=== PATIENT | male | born 1980 | race Two or more races ===

== ENCOUNTER 2020-01-31 19:50 | Inpatient (IN) | payer MEDICAID ==
[~2020-01-31] VITALS: Ht 162.6 cm; Wt 77.1 kg
[2020-01-31] MEDS ORDERED: ONDANSETRON HCL 4MG/2ML INJ IV STA (21:28)
[2020-01-31] MEDS ORDERED: KETOROLAC 30MG/ML VIAL IV STA (21:28)
[2020-01-31] MEDS ORDERED: SODIUM CHLORIDE 0.9% 1000ML BAG (SEPSIS BOLUS) IV ONE (21:30)
[2020-01-31 23:03] LABS: BASOPHILS % 0.2 % (0.0-2.0); HEMATOCRIT. 44.9 % (42.0-52.0); HEMOGLOBIN. 15.6 g/dL (14.0-18.0); LYMPHOCYTES % 17.1 % (20.0-50.0); MEAN CORPUSCULAR HEMOGLOBIN 31.6 pg (28.0-32.0); MEAN CORPUSCULAR VOLUME 90.6 fL (80.0-94.0); MEAN PLATELET VOLUME 8.7 fl (7.4-10.4); MONOCYTES % 12.8 % (2.0-8.0); NEUTROPHILS % 69.9 % (40.0-76.0); PLATELET 225 x1000/uL (130-400); RED BLOOD CELL COUNT 4.95 mill/uL (4.7-6.1)
[2020-01-31 23:09] LABS: CHLORIDE 101 mEq/L (98-107)
[2020-01-31 23:11] LABS: INR 1.1; PROTHROMBIN TIME 11.4 sec (9.6-11.0)
[2020-02-01] MEDS ORDERED: ASPIRIN 325MG TABLET PO ONE (00:15)
[2020-02-01] MEDS ORDERED: TRAZODONE HCL 50MG TABLET PO PRN (00:30)
[2020-02-01] MEDS ORDERED: SODIUM CHLORIDE 0.9% 500 ML IV ONE (00:30)
[2020-02-01] MEDS ORDERED: KETOROLAC 30MG/ML VIAL IV PRN (00:30)
[2020-02-01] MEDS ORDERED: CEFTRIAXONE 1 G PREMIX 50 ML IV ONE (00:30)
[2020-02-01] MEDS ORDERED: ONDANSETRON HCL 4MG/2ML INJ IV PRN (00:30)
[2020-02-01 05:12] LABS: *AMPHETAMINES SCREEN URINE NEGATIVE (NEGATIVE); *BARBITURATES SCREEN URINE NEGATIVE (NEGATIVE)
[2020-02-01 05:13] LABS: *BENZODIAZEPINES SCREEN URINE NEGATIVE (NEGATIVE); *COCAINE SCREEN URINE NEGATIVE (NEGATIVE); METHADONE URINE SCREEN NEGATIVE (NEGATIVE); OPIATES URINE SCREEN NEGATIVE (NEGATIVE); PHENCYCLIDINE URINE SCREEN NEGATIVE (NEGATIVE)
[2020-02-01 05:14] LABS: CANNABINOID URINE SCREEN NEGATIVE (NEGATIVE)
[2020-02-01 06:00] VITALS: BP 137/69
[2020-02-01] MEDS: ACETAMINOPHEN 325MG TABLET PO PRN ×2 (06:22→23:07)
[2020-02-01 08:00] VITALS: BP 104/1
[2020-02-01 08:06] VITALS: BP 104/61
[2020-02-01] MEDS ORDERED: HEPARIN 5000 UNITS/ML VIAL SUBCUT SCH (09:00)
[2020-02-01] MEDS: ENOXAPARIN 80MG/0.8ML SYR SUBCUT SCH ×2 (10:13→23:06)
[2020-02-01] MEDS: DEXAMETHASONE 4MG TABLET PO SCH (10:24)
[2020-02-01] MEDS: AZITHROMYCIN 500 MG TABLET PO SCH (10:24)
[2020-02-01 12:00] VITALS: BP 112/68
[2020-02-01 13:22] LABS: CLARITY URINE CLEAR (CLEAR); COLOR URINE YELLOW (YELLOW); KETONES URINE 1+ (NEGATIVE); LEUKOCYTE ESTERASE URINE NEGATIVE (NEGATIVE); NITRITE URINE NEGATIVE (NEGATIVE); OCCULT BLOOD URINE NEGATIVE (NEGATIVE); PH URINE 6.5 (4.5-8.0); PROTEIN URINE NEGATIVE (NEGATIVE); SPECIFIC GRAVITY URINE 1.007 (1.005-1.030)
[2020-02-01 16:00] VITALS: BP 90/71
[2020-02-01 20:00] VITALS: BP 110/70
[2020-02-01 21:06] LABS: LDL CHOLESTEROL 55 mg/dL (5-100)
[2020-02-01 21:08] LABS: HDL CHOLESTEROL 38 mg/dL (40-59)
[2020-02-01] MEDS: CEFTRIAXONE 1 G PREMIX 50 ML IV SCH (23:06)
[2020-02-02] VITALS: BP 101/63
[2020-02-02 04:00] VITALS: BP 104/64
[2020-02-02] MEDS: ALBUTEROL 6.7GM HFA INHALER ORI SCH ×3 (06:00→17:01)
[2020-02-02 06:51] LABS: CHLORIDE 106 mEq/L (98-107)
[2020-02-02 06:53] LABS: BASOPHILS % 0.1 % (0.0-2.0); HEMOGLOBIN. 14.4 g/dL (14.0-18.0); LYMPHOCYTES % 12.7 % (20.0-50.0); MEAN CORPUSCULAR HEMOGLOBIN 31.5 pg (28.0-32.0); MEAN CORPUSCULAR VOLUME 89.3 fL (80.0-94.0); MEAN PLATELET VOLUME 8.1 fl (7.4-10.4); MONOCYTES % 13.2 % (2.0-8.0); PLATELET 258 x1000/uL (130-400); RED BLOOD CELL COUNT 4.59 mill/uL (4.7-6.1); RED CELL DISTRIBUTION WIDTH 13.1 % (11.6-14.6)
[2020-02-02 07:03] LABS: LDL CHOLESTEROL 64 mg/dL (5-100)
[2020-02-02 07:04] LABS: HDL CHOLESTEROL 40 mg/dL (40-59)
[2020-02-02 07:05] LABS: T4 FREE 1.28 ng/dL (0.76-1.46)
[2020-02-02 08:30] VITALS: BP 108/64
[2020-02-02] MEDS: ENOXAPARIN 80MG/0.8ML SYR SUBCUT SCH ×2 (09:05→21:36)
[2020-02-02] MEDS: AZITHROMYCIN 500 MG TABLET PO SCH (09:05)
[2020-02-02] MEDS: DEXAMETHASONE 4MG TABLET PO SCH (09:05)
[2020-02-02 12:00] VITALS: BP 103/66
[2020-02-02 16:00] VITALS: BP 112/56
[2020-02-02 20:00] VITALS: BP 113/58
[2020-02-02] MEDS: CEFTRIAXONE 1 G PREMIX 50 ML IV SCH (21:36)
[2020-02-03] VITALS: BP 117/66
[2020-02-03] MEDS: ALBUTEROL 6.7GM HFA INHALER ORI SCH ×3 (00:56→11:30)
[2020-02-03 04:00] VITALS: BP 112/69
[2020-02-03 06:36] LABS: BASOPHILS % 0.1 % (0.0-2.0); HEMATOCRIT. 41.5 % (42.0-52.0); HEMOGLOBIN. 14.7 g/dL (14.0-18.0); LYMPHOCYTES % 11.4 % (20.0-50.0); MEAN CORPUSCULAR HEMOGLOBIN 31.7 pg (28.0-32.0); MEAN CORPUSCULAR VOLUME 89.8 fL (80.0-94.0); MEAN PLATELET VOLUME 8.2 fl (7.4-10.4); MONOCYTES % 12.8 % (2.0-8.0); NEUTROPHILS % 75.7 % (40.0-76.0); PLATELET 339 x1000/uL (130-400); RED BLOOD CELL COUNT 4.63 mill/uL (4.7-6.1); RED CELL DISTRIBUTION WIDTH 13.2 % (11.6-14.6)
[2020-02-03 06:45] LABS: CHLORIDE 107 mEq/L (98-107)
[2020-02-03 08:00] VITALS: BP 110/67
[2020-02-03] MEDS: DEXAMETHASONE 4MG TABLET PO SCH (08:32)
[2020-02-03] MEDS: AZITHROMYCIN 500 MG TABLET PO SCH (08:32)
[2020-02-03] MEDS: ENOXAPARIN 80MG/0.8ML SYR SUBCUT SCH (08:32)
[2020-02-03] MEDS ORDERED: DEX4 PO (10:54)
[2020-02-03] MEDS ORDERED: AZIT500T8 PO (10:54)
[2020-02-03] MEDS ORDERED: TOPUD PO (10:54)
[2020-02-03 11:37] VITALS: BP 110/67
[2020-02-03 12:00] VITALS: BP 99/62
[2020-02-03 14:00] VITALS: BP 99/62
== END 2020-02-03 16:25 | disposition home or self-care (01) | DRG 720 ==
LOC: ER 19:50 → 7WST 02-01 00:22 → ENRESERV 02-01 04:58
PROVIDERS: ADMIT Internal Medicine; ATTEND Internal Medicine
DX: A41.89 Other specified sepsis (principal); U07.1 COVID-19; J96.01 Acute respiratory failure with hypoxia; E87.2 Acidosis; E87.1 Hypo-osmolality and hyponatremia; J12.89 Other viral pneumonia; I95.9 Hypotension, unspecified
CPT/HCPCS: 36415; 71045; 80053; 80061; 80305; 81003; 83036; 83605; 83735; 84145; 84439; 84443; 84484; 85025; 93005; 99291; J0696; J1644; J1650; J1885; J2405; J7030; J8540; U0003-CS